=== PATIENT | male | born 1945 | race Caucasian/White ===

== ENCOUNTER 2019-07-14 01:56 | Outpatient (RCR) | payer MEDICARE, SELFPAY ==
[2019-07-14] MEDS: Normal Saline Flush 10 ML SYR IVP (10:34)
[2019-07-14] MEDS: diphenhydrAMINE 25 MG CAP PO (10:34)
[2019-07-14] MEDS: Acetaminophen 500 MG TAB 1000 MG PO (10:34)
[2019-07-14 10:58] VITALS: BP 137/78; PULSE 68; RESP 19; TEMP 36.8; O2SAT 98
[2019-07-14 11:55] VITALS: BP 139/76; PULSE 66; RESP 19; TEMP 36.4; O2SAT 98
[2019-07-14 12:10] VITALS: BP 142/84; PULSE 67; TEMP 36.4; O2SAT 98
[2019-07-14 12:35] VITALS: BP 121/69; PULSE 70; TEMP 36.2
== END 2019-07-29 23:59 | disposition home or self-care (01) ==
LOC: INF 01:56
PROVIDERS: Visit Provider Internal Medicine
DX: M05.9 Rheumatoid arthritis with rheumatoid factor, unspecified (principal)
CPT/HCPCS: 96365; J1602

== ENCOUNTER 2019-08-11 00:54 | Outpatient (RCR) | payer MEDICARE, SELFPAY ==
[2019-08-11] MEDS: diphenhydrAMINE 25 MG CAP PO (11:24)
[2019-08-11] MEDS: Normal Saline Flush 10 ML SYR IVP (11:24)
[2019-08-11] MEDS: Acetaminophen 500 MG TAB 1000 MG PO (11:24)
[2019-08-11 12:38] LABS: Abs Immature Grans 0.05 k/cumm (0.0-0.09); Absolute Basophil Count 0.03 k/cumm (0.0-0.2); Absolute Eosinophil Count 0.11 k/cumm (0.0-0.7); Absolute Lymphocyte Count 1.05 k/cumm (1.2-3.4); Absolute Monocyte Count 0.61 k/cumm (0.11-0.7); Absolute Neutrophil Count 5.66 k/cumm (1.2-6.7); Basophils % 0.4; Eosinophils % 1.5; HCT 37.1 % (40.0-50.0); HGB 11.6 g/dL (13.5-17.5); Immature Grans % 0.7; Mean Corp. HGB Concentration 31.3 g/dL (32.0-36.0); Mean Corpuscular Hemoglobin 25.7 pg (27.0-33.0); Mean Corpuscular Volume 82.1 fL (80-95); Monocytes % 8.1; Neutrophils % 75.3; Platelet Count 182 x1000/uL (130-400); RBC 4.52 m/cumm (4.50-6.00); RBC Distribution Width 17.4 % (11.8-14.1); White Blood Cell Count 7.51 k/cumm (4.4-10.8)
[2019-08-11 12:53] LABS: ALT 41 U/L (16-63); AST 26 U/L (15-37); Albumin 3.8 g/dL (3.4-5.0); Alkaline Phosphatase 68 U/L (46-116); Anion Gap 5.2 mmol/L (3-11); BUN 24 mg/dL (7-18); Bilirubin, Total 0.4 mg/dL (0.2-1.0); CO2 29.8 mmol/L (21.0-32.0); CREATININE 1.09 mg/dL (0.70-1.30); Calcium 8.5 mg/dL (8.5-10.1); Chloride 106 mmol/L (98-107); Glucose 95 mg/dL (70-100); Potassium 3.8 mmol/L (3.5-5.1); Sodium 141 mmol/L (136-145); Total Protein 7.1 g/dL (6.4-8.2)
[2019-08-11 13:35] LABS: ESR 18 mm/hr (1-20)
[2019-08-17 14:30] LABS: dsDNA Ab, IgG <12.3 IU/mL (<30.0)
== END 2019-08-28 23:59 | disposition home or self-care (01) ==
LOC: INF 00:54
PROVIDERS: Internal Medicine Rheumatology; Visit Provider Internal Medicine
DX: M05.9 Rheumatoid arthritis with rheumatoid factor, unspecified (principal)
CPT/HCPCS: 36415; 80053; 85652; 96365; 85025; 86225; J1602

== ENCOUNTER 2019-10-06 02:21 | Outpatient (RCR) | payer MEDICARE, SELFPAY ==
[2019-10-06] MEDS: Normal Saline Flush 10 ML SYR IVP (10:58)
== END 2019-10-29 23:59 | disposition home or self-care (01) ==
LOC: INF 02:21
PROVIDERS: Visit Provider Internal Medicine
DX: M05.9 Rheumatoid arthritis with rheumatoid factor, unspecified (principal)
CPT/HCPCS: 96365; J1602

== ENCOUNTER 2019-12-01 01:43 | Outpatient (RCR) | payer MEDICARE, SELFPAY ==
[2019-12-01] MEDS: Normal Saline Flush 10 ML SYR IVP (11:15)
[2019-12-01] MEDS: diphenhydrAMINE 25 MG CAP PO (11:31)
[2019-12-01] MEDS: Acetaminophen 500 MG TAB 1000 MG PO (11:31)
[2019-12-01 11:43] LABS: Abs Immature Grans 0.09 k/cumm (0.0-0.09); Absolute Basophil Count 0.06 k/cumm (0.0-0.2); Absolute Eosinophil Count 0.21 k/cumm (0.0-0.7); Absolute Lymphocyte Count 1.48 k/cumm (1.2-3.4); Absolute Monocyte Count 1.06 k/cumm (0.11-0.7); Absolute Neutrophil Count 6.34 k/cumm (1.2-6.7); Basophils % 0.6; Eosinophils % 2.3; HCT 38.9 % (40.0-50.0); HGB 12.7 g/dL (13.5-17.5); Mean Corp. HGB Concentration 32.6 g/dL (32.0-36.0); Mean Corpuscular Hemoglobin 26.3 pg (27.0-33.0); Mean Corpuscular Volume 80.5 fL (80-95); Mean Platelet Volume 11.2 fL (8.0-11.0); Monocytes % 11.5; Neutrophils % 68.6; Platelet Count 192 x1000/uL (130-400); RBC 4.83 m/cumm (4.50-6.00); RBC Distribution Width 17.9 % (11.8-14.1); White Blood Cell Count 9.24 k/cumm (4.4-10.8)
[2019-12-01 11:55] LABS: ALT 36 U/L (16-63); AST 27 U/L (15-37); Albumin 3.9 g/dL (3.4-5.0); Alkaline Phosphatase 59 U/L (46-116); Anion Gap 6.8 mmol/L (3-11); BUN 32 mg/dL (7-18); Bilirubin, Total 0.7 mg/dL (0.2-1.0); CO2 29.2 mmol/L (21.0-32.0); Calcium 8.7 mg/dL (8.5-10.1); Chloride 104 mmol/L (98-107); Estimated GFR 59.35 (mL/min/1.73m2); Glucose 93 mg/dL (74-106); Potassium 3.5 mmol/L (3.5-5.1); Sodium 140 mmol/L (136-145); Total Protein 7.4 g/dL (6.4-8.2)
[2019-12-01 12:46] LABS: ESR 18 mm/hr (1-20)
[2019-12-02 13:39] LABS: dsDNA Ab, IgG <12.3 IU/mL (<30.0)
== END 2019-12-28 23:59 | disposition home or self-care (01) ==
LOC: INF 01:43
PROVIDERS: Visit Provider Internal Medicine
DX: M05.9 Rheumatoid arthritis with rheumatoid factor, unspecified (principal); M32.9 Systemic lupus erythematosus, unspecified; Z79.899 Other long term (current) drug therapy
CPT/HCPCS: 36415; 80053; 85652; 96365; 85025; 86225; J1602